=== PATIENT | male | born 1985 | race Caucasian/White ===

== ENCOUNTER 2017-01-05 17:55 | Emergency (ER) | payer OTHER ==
[2017-01-05] MEDS ORDERED: NS 1,000 ML IV ONE (18:02)
[2017-01-05 18:06] VITALS: TEMP 98.4
--- NOTE | 2017-01-05 18:24 | CPEKG ---
Heart Rate: 95 RR Interval: 632 P-R Interval: 164 QRSD Interval: 106 QT Interval: 348 QTC Interval: 438 P [place]: 61 QRS [place]: 58 T Wave [place]: 22 EKG Severity - NORMAL ECG - EKG Impression: SINUS RHYTHM Electronically Signed By: Ulysses Álvarez 05-Jan-2017 18:51:57
--- NOTE | 2017-01-05 18:32 | EDPHY ---
H & P Smoking Status: Never smoked Time Seen by Provider: 01/05/17 18:29 HPI/ROS: HPI: 31-year-old male brought into emergency department by EMS with chief concern heroin overdose. Had right meniscal repair at 2:[address] Quintana. Got home from surgery and while his girlfriend was bringing the groceries into the house, he used heroin. She found him on the toilet, purple, barely breathing with snoring breaths. 911 was called. At time of EMS arrival , patient was breathing independently and his color had returned. He was not given Narcan. He used heroin once yesterday and once today. Had been off heroin for 3.5 months prior to that. Denies dizziness, headache, shortness of breath, chest pain, abdominal pain, nausea, vomiting. Denies suicidal ideation. Lives on sugar loaf. Patient at [facility]. ROS:10 point review of systems is negative other than as stated in HPI ([place]) Past Medical/Surgical History: Meniscal repair right knee, polysubstance abuse ([place]) Physical Exam: Vitals stable, reviewed by me General: Awake, alert, calm, cooperative. No acute distress. Head: Normalocephalic. Atraumatic. EENT: PERRLA. EOMI. No pallor or injection. Anicteric. No nystagmus. No injection. TMs intact bilaterally with normal landmarks. No rhinnorhea, nasal passages clear. Oropharynx without redness, exudates, or lesions. Tonsils 2+ bilaterally, no exudates. Neck: Supple, nontender. No lymphadenopathy. Full range of motion. No meningismus. Respiratory: Breathing unlabored. Breath sounds equal bilaterally and clear to auscultation. No adventitious sounds. CV: Chest nontender, atraumatic. Heart rate regular. No murmur, distal pulses 2+ bilaterally. Brisk cap refill all extremities. GI: Abdomen soft, nontender. Bowel sounds normoactive and positive x4 quadrants. Neuro: Alert. Oriented x 3. Speech clear. Nonfocal cranial nerves throughout. Sensation intact all extremities. Skin: Skin warm, dry, intact. Right knee with dressing and [place] wrap in place. Skin turgor normal. Extremities: Moves all extremities. Strength 5+ all extremities. ([place] ) Constitutional: Initial Vital Signs Temperature (C) 36.9 C 01/05/17 18:04 Heart Rate 104 H 01/05/17 18:04 Respiratory Rate 16 01/05/17 18:04 Blood Pressure 130/84 H 01/05/17 18:04 O2 Sat (%) 91 L 01/05/17 18:04 O2 Delivery Mode Room Air O2 (L/minute) 2 Allergies/Adverse Reactions: No Known Allergies Allergy (Unverified 01/05/17 18:02) Home Medications: Medication Instructions Recorded GABAPENTIN 01/05/17 Medical Decision Making - Diagnostics EKG Interpretation: 12-lead EKG interpreted by me; official reading is in trace master. My interpretation is sinus rhythm with no ischemic changes and normal intervals ( Ulysses Álvarez) ED Course/Re-evaluation: 31-year-old male presents to ED brought in by EMS with heroin overdose. At time of arrival EMS found him spontaneously breathing with good color. Vitals were stable at that time and he did not receive Narcan, though it is at the bedside now. At time of exam patient is alert and oriented x3. Vitals are stable. His girlfriend Sugey Bee will be staying with him tonight and has the Percocet narcotics he was prescribed after surgery. She will be discarding these. Patient will not be alone tonight according to the girlfriend. 1835: Patient is on continuous monitor. Given 1 L normal saline. EKG shows a sinus rhythm rate 95 normal intervals, no axis deviation, no evidence of ischemia or dysrhythmia. Current blood pressure is 130/84, 100% O2 saturation on room air. Will monitor patient for an hour and discharge home pending stable vitals. ([place]) Differential Diagnosis: Differential diagnosis includes but is not limited to drug overdose, depression , anxiety, pain ([place]) Other Provider: PHYSICIAN DOCUMENTATION: The patient was evaluated and managed by the nurse practitioner and myself. I have reviewed the chart and agree with the findings and plan of care as documented. In addition, I examined the patient myself at 1808. History confirmed as right knee surgery today. Did heroin at home was found with shallow respirations and decreased mental status. Physical findings as follows: Now the patient is on his nasal cannula oxygen, and is alert and cooperative. At 7:15 p.m. the patient dropped into the 80s off oxygen, plan for further observation. At discharge the patient's oxygen saturation is normal. He does not have evidence of repeat desaturation. 97% at 1953. I am the secondary supervising physician. (Ulysses Álvarez) - Data Points Laboratory Results: Laboratory Results 01/05/17 18:16 01/05/17 18:16 01/05/17 01/05/17 18:16 18:16 WBC 11.46 10^3/uL H 10^3/uL (3.80-9.50) RBC 4.85 10^6/uL 10^6/uL (4.40-6.38) Hgb 14.3 g/dL g/dL (13.7-17.5) Hct 41.8 % % (40.0-51.0) MCV 86.2 fL fL (81.5-99.8) MCH 29.5 pg pg (27.9-34.1) MCHC 34.2 g/dL g/dL (32.4-36.7) RDW 13.1 % % (11.5-15.2) Plt Count 220 10^3/uL 10^3/uL (150-400) MPV 9.8 fL fL (8.7-11.7) Neut % (Auto) 92.3 % H % (39.3-74.2) Lymph % (Auto) 4.4 % L % (15.0-45.0) [place] % (Auto) 2.9 % L % (4.5-13.0) Eos % (Auto) 0.0 % L % (0.6-7.6) Baso % (Auto) 0.1 % L % (0.3-1.7) Nucleat RBC Rel Count 0.0 % % (0.0-0.2) Absolute Neuts (auto) 10.58 10^3/uL H 10^3/uL (1.70-6.50) Absolute Lymphs (auto) 0.50 10^3/uL L 10^3/uL (1.00-3.00) Absolute Monos (auto) 0.33 10^3/uL 10^3/uL (0.30-0.80) Absolute Eos (auto) 0.00 10^3/uL L 10^3/uL (0.03-0.40) Absolute Basos (auto) 0.01 10^3/uL L 10^3/uL (0.02-0.10) Absolute Nucleated RBC 0.00 10^3/uL 10^3/uL (0-0.01) Immature Gran % 0.3 % % (0.0-1.1) Immature Gran # 0.04 10^3/uL 10^3/uL (0.00-0.10) Sodium 138 mEq/L mEq/L (134-144) Potassium 4.4 mEq/L mEq/L (3.5-5.2) Chloride 100 mEq/L mEq/L (97-110) Carbon Dioxide 26 mEq/l mEq/l (22-31) Anion Gap 12 mEq/L mEq/L (8-16) BUN 19 mg/dL mg/dL (7-23) Creatinine 0.9 mg/dL mg/dL (0.7-1.3) Estimated GFR > 60 Glucose 190 mg/dL H mg/dL (70-100) Calcium 8.8 mg/dL mg/dL (8.5-10.4) Medications Given: Discontinued Medications Sodium Chloride (Ns) 1,000 mls @ 0 mls/hr IV ONCE ONE PRN Reason: Wide Open Stop: 01/05/17 18:03 Last Admin: 01/05/17 18:20 Dose: 1,000 mls Departure - Departure Disposition: Home, Routine, Self-Care Clinical Impression: Accidental heroin overdose Qualifiers: Encounter type: initial encounter Qualified Code(s): T40.1X1A - Poisoning by heroin, accidental (unintentional), initial encounter Condition: Fair Instructions: Narcotic Abuse (ED) Additional Instructions: Plan: Follow up Jonathan tomorrow for recheck without fail--When you call to schedule appointment, please let the office know you are an "ER follow up" appointment" Do not use heroin You may use 600 mg of ibuprofen every 6 hours for fever, inflammation, or pain. Always take ibuprofen with food and stay well hydrated while taking. Do not exceed the maximum allowable dose in a 24 hour period which is 2400 mg. Referrals: Patient,NotPresent [Unknown] - As per Instructions JONATHAN GARCIA H,[facility] [Clinic] - As per Instructions
[2017-01-05 18:35] LABS: % IMMATURE GRANULYOCYTES 0.3 % (0.0-1.1); ABSOLUTE IMMATURE GRANULOCYTES 0.04 10^3/uL (0.00-0.10); ADD DIFF? NO; ADD MORPH? NO; ADD SCAN? NO; ATYPICAL LYMPHOCYTE FLAG 0 (0-99); FRAGMENT RBC FLAG 0 (0-99); HEMATOCRIT 41.8 % (40.0-51.0); HEMOGLOBIN 14.3 g/dL (13.7-17.5); LEFT SHIFT FLG 0 (0-99); LIPEMIA HEMOLYSIS FLAG 90 (0-99); MEAN CELL HEMOGLOBIN 29.5 pg (27.9-34.1); MEAN CELL HEMOGLOBIN CONCENTR. 34.2 g/dL (32.4-36.7); MEAN CELL VOLUME 86.2 fL (81.5-99.8); MEAN PLATELET VOLUME 9.8 fL (8.7-11.7); PLATELET CLUMPS FLAG 20 (0-99); PLATELET COUNT 220 10^3/uL (150-400); RED BLOOD CELL COUNT 4.85 10^6/uL (4.40-6.38); RED CELL DISTRIBUTION WIDTH 13.1 % (11.5-15.2)
[2017-01-05 18:46] LABS: ANION GAP 12 mEq/L (8-16); CALCIUM 8.8 mg/dL (8.5-10.4); CARBON DIOXIDE 26 mEq/l (22-31); CHLORIDE 100 mEq/L (97-110); CREATININE 0.9 mg/dL (0.7-1.3); GLOMERULAR FILTRATION RATE > 60; GLUCOSE 190 mg/dL (70-100); POTASSIUM 4.4 mEq/L (3.5-5.2); SODIUM 138 mEq/L (134-144)
[2017-01-05 19:24] VITALS: BP 126/77
[2017-01-05 19:54] VITALS: PULSE 89; RESP 12; O2SAT 97
== END 2017-01-05 20:01 | disposition home or self-care (01) ==
LOC: EDUNIT#
DX: T40.1X1A Poisoning by heroin, accidental (unintentional), initial encounter (principal)